=== PATIENT | female | born 1990 | race American Indian/Alaskan Native ===

== ENCOUNTER 2021-08-02 09:33 | Inpatient (IN) | payer SELFPAY ==
[2021-08-02] MEDS ORDERED: miSOPROStol 200 MCG TAB PR PRN (11:05)
[2021-08-02] MEDS ORDERED: fentaNYL 100 MCG/2 ML INJ IV PRN (11:05)
[2021-08-02] MEDS ORDERED: CARBOPROST TROMETHAMINE 250 MCG/1 ML INJ IM PRN (11:05)
[2021-08-02] MEDS ORDERED: NalbUPHINE 10 MG/1 ML INJ IV PRN (11:05)
[2021-08-02] MEDS ORDERED: ePHEDrine SULFATE 50 MG/1 ML INJ IV PRN (11:05)
[2021-08-02] MEDS ORDERED: AMPICILLIN/NS 2 GM/100 ML 2 GM/100 ML BAG IV ONE (11:05)
[2021-08-02] MEDS ORDERED: LIDOCAINE (2%) 20 MG/1 ML VIAL 20 ML MDV INFILTRATI ONE (11:05)
[2021-08-02] MEDS ORDERED: LOPERAMIDE 2 MG CAP PO PRN (11:05)
[2021-08-02] MEDS ORDERED: TERBUTALINE 1 MG/1 ML INJ SUB-Q PRN (11:05)
[2021-08-02] MEDS ORDERED: MINERAL OIL 30 ML ORAL LIQD PO PRN (11:05)
[2021-08-02] MEDS ORDERED: BUTORPHANOL 2 MG/1 ML INJ IV PRN (11:05)
[2021-08-02] MEDS ORDERED: OXYTOCIN 10 UNIT/1 ML INJ IM PRN (11:05)
[2021-08-02] MEDS ORDERED: METHYLERGONOVINE MALEATE 0.2 MG/ML VIAL IM PRN (11:05)
[2021-08-02] MEDS ORDERED: ACETAMINOPHEN 325 MG TAB PO PRN ×2 (11:05→22:21)
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
[2021-08-02] MEDS ORDERED: AMPICILLIN/NS 2 GM/100 ML 2 GM/100 ML BAG IV SCH (12:00)
[2021-08-02] MEDS ORDERED: OXYTOCIN DRIP 30 UNITS/500 ML BAG IV SCH ×4 (12:00→23:00)
[2021-08-02] MEDS: LACTATED RINGERS 1,000 ML IV SCH (13:26)
[2021-08-02 14:48] LABS: Hematocrit 35.3 % (30.3-42.9); Hemoglobin 11.8 gm/dl (10.1-14.3); Mean Corpuscular HGB Conc 34 % (30-34); Mean Corpuscular Volume 87 fl (79-97); Platelet Count 291 K/mm3 (140-440); Red Blood Count 4.04 M/mm3 (3.65-5.03); Red Cell Distribution Width 13.5 % (13.2-15.2)
--- NOTE | 2021-08-02 14:55 | Ultrasound Report ---
OBSTETRIC ULTRASOUND INDICATION: EFW, JOSE E COMPARISON: No prior relevant imaging studies are available for comparison. TECHNIQUE: Transabdominal imaging was performed. FINDINGS: Single viable intrauterine is identified. lie: Cephalic. measurements are as follows: Biparietal diameter 9.3 cm, 37 weeks 6 days Head circumference 29.7 cm, 32 weeks 6 days Abdominal circumference 30.0 cm, 34 weeks 0 days Femur length 6.8 cm, 34 weeks 6 days Estimated heart rate at this time is 1865 g. Amniotic fluid index is 6.3 cm,, below the lower limits of normal. CONCLUSION: Single viable intrauterine currently in cephalic position with estimated weight at th is time of 1865 g. Of note, the biparietal diameter measurement is several weeks disparate from the a dditional measurements, this measurement may be technically limited and not reliable. Amniotic fluid index is decreased at 6.3 cm. Signer Name: Samm Corey MD Signed: 08/02/2021 2:51 PM Workstation Name: [id number]
[2021-08-02 15:13] LABS: Hepatitis C Virus Antibody Non-Reactive (NonReactive)
[2021-08-02] MEDS ORDERED: BICITRA ORAL LIQD 30ML ONE (20:39)
[2021-08-02] MEDS ORDERED: FAMOTIDINE 20 MG/2 ML INJ IV ONE ×2 (20:39→20:43)
[2021-08-02] MEDS ORDERED: METOCLOPRAMIDE 10 MG/2 ML INJ ONE (20:39)
[2021-08-02] MEDS ORDERED: ceFAZolin/Water 2 GM/20 ML 2 GM/20 ML SYRINGE IV ONE (20:40)
[2021-08-02] MEDS ORDERED: METOCLOPRAMIDE 10 MG/2 ML INJ IV ONE (20:43)
[2021-08-02] MEDS ORDERED: BICITRA ORAL LIQD 30ML PO ONE (20:43)
[2021-08-02] MEDS ORDERED: LACTATED RINGERS 1,000 ML IV SCH (20:45)
--- NOTE | 2021-08-02 20:46 | Event Note ---
Date: 08/02/21 Patient with pitocin turned off now x 2 for NRFHTS. Now with persistent variable and late decelerations, not on pitocin. intolerance to labor. Recommended and offered primary c/s for NRFHTs. Patient agreed. To OR.
--- NOTE | 2021-08-02 20:47 | Anesthesia Consultation ---
Anesthesia Consult and Med Hx Date of service: 08/02/21 - Airway Anesthetic Teeth Evaluation: Good ROM Head & Neck: Adequate Mental/Hyoid Distance: Adequate Mallampati Class: Class II Intubation Access Assessment: Probably Good - Pulmonary Exam CTA: Yes - Cardiac Exam Cardiac Exam: RRR - Pre-Operative Health Status ASA Pre-Surgery Classification: ASA3 Proposed Anesthetic Plan: Spinal - Pulmonary Hx Smoking: Yes - Central Nervous System Hx Seizures: No Hx Psychiatric Problems: Yes (depression) - Endocrine Hx Renal Disease: No Hx Hypothyroidism: No Hx Hyperthyroidism: No - Hematic Hx Anemia: No Hx Sickle Cell Disease: No - Other Systems Hx Alcohol Use: No
--- NOTE | 2021-08-02 20:48 | Anesthesia Day of Surgery ---
Anesthesia Day of Surgery - Day of Surgery Patient Examined: Yes Patient H&P Reviewed: Yes Patient is NPO: Yes
[2021-08-02] MEDS ORDERED: ceFAZolin/Water 2 GM/20 ML 2 GM/20 ML SYRINGE IV NR (21:00)
[2021-08-02] MEDS ORDERED: WATER FOR IRRIG STERILE 1,500 ML BOTTLE IR ONE (21:07)
[2021-08-02] MEDS ORDERED: ceFAZolin/STERILE WATER 2 GM/20 ML SYRINGE IV ONE (21:07)
[2021-08-02] MEDS ORDERED: SODIUM CHLORIDE 0.9% IRR 1,500 ML BOTTLE IR ONE (21:07)
[2021-08-02] MEDS ORDERED: dexAMETHasone 20 MG/5 ML VIAL ONE (21:24)
[2021-08-02] MEDS ORDERED: BUPIVACAINE/PF (0.5%) 5 MG/1 ML 30 ML VIAL INFILTRATI ONE (21:24)
[2021-08-02] MEDS ORDERED: ONDANSETRON 4 MG/2 ML INJ ONE (21:24)
[2021-08-02] MEDS ORDERED: KETOROLAC 30 MG/1 ML INJ ONE (21:24)
[2021-08-02] MEDS ORDERED: SIMETHICONE 80 MG CHEW TAB PO PRN (22:21)
[2021-08-02] MEDS ORDERED: ONDANSETRON 4 MG/2 ML INJ IV PRN (22:21)
[2021-08-02] MEDS ORDERED: SENNOSIDES 8.6 MG TAB PO PRN (22:21)
[2021-08-02] MEDS ORDERED: WITCH HAZEL/ GLYCERIN PAD TP PRN (22:21)
[2021-08-02] MEDS ORDERED: NALOXONE 0.4 MG/1 ML INJ IV PRN (22:21)
[2021-08-02] MEDS ORDERED: PROMETHAZINE 25 MG RECT SUPP PR PRN (22:21)
[2021-08-02] MEDS ORDERED: MAGNESIUM HYDROXIDE (MOM) ORAL LIQD UDC PO PRN (22:21)
[2021-08-02] MEDS ORDERED: LANOLIN/ZINC/DIMETHICONE (LANSINOH) 7 GM TP PRN (22:21)
[2021-08-02] MEDS ORDERED: MORPHINE 4 MG/1 ML INJ IV PRN (22:21)
[2021-08-02] MEDS ORDERED: HYDROCORTISONE 25 MG RECTAL SUPP PR PRN (22:21)
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
[2021-08-02] MEDS ORDERED: KETOROLAC 30 MG/1 ML INJ IV SCH (23:00)
[2021-08-03] MEDS ORDERED: GLYCOPYRROLATE 0.4 MG/2 ML INJ IV ONE
[2021-08-03] MEDS ORDERED: GLYCOPYRROLATE 0.4 MG/2 ML INJ ONE (00:46)
[2021-08-03] MEDS ORDERED: MAGNESIUM SULFATE 4 GM/100 ML BAG IV ONE ×2 (02:04→02:36)
[2021-08-03 02:21] LABS: Hematocrit 39.3 % (30.3-42.9); Hemoglobin 13.5 gm/dl (10.1-14.3)
[2021-08-03] MEDS ORDERED: MAGNESIUM SULFATE 40GM/1000ML 40 GM/1,000 ML BAG IV ONE (02:24)
[2021-08-03] MEDS ORDERED: MAGNESIUM SULFATE 40GM/1000ML 40 GM/1,000 ML BAG IV SCH (03:00)
[2021-08-03 03:10] LABS: Bilirubin,Urine NEG (Negative); Blood,Urine NEG (Negative); Color,Urine Colorless (Yellow); Urobilinogen,Urine < 2.0 mg/dL (<2.0)
[2021-08-03 03:17] LABS: Amphetamine Screen,Urine Negative; Benzodiazepines Screen,Urine Negative; Cannabinoid Screen,Urine Negative; Cocaine Screen,Urine Negative; Methadone Screen,Urine Negative; Opiate Screen,Urine Negative
--- NOTE | 2021-08-03 07:19 | Event Note ---
Date: 08/03/21 elevated BPs to 160s. Given previous hx preeclampsia, but presume same diagnosis. Obtain PIH labs. Start magnesium x 24H PP.
[2021-08-03 07:20] LABS: Hematocrit 33.2 % (30.3-42.9); Hemoglobin 11.4 gm/dl (10.1-14.3); Mean Corpuscular HGB Conc 34 % (30-34); Mean Corpuscular Volume 87 fl (79-97); Platelet Count 278 K/mm3 (140-440); Red Blood Count 3.81 M/mm3 (3.65-5.03); Red Cell Distribution Width 13.5 % (13.2-15.2)
[2021-08-03 07:40] LABS: Alanine Aminotransferase 20 units/L (7-56); Uric Acid 5.9 mg/dL (3.5-7.6)
[2021-08-03 07:42] LABS: Bilirubin,Urine NEG (Negative); Blood,Urine SM (Negative); Color,Urine Straw (Yellow); Mucus,Urine FEW /HPF; Protein,Urine <15 mg/dL mg/dL (Negative); Urobilinogen,Urine < 2.0 mg/dL (<2.0)
[2021-08-03] MEDS: LACTATED RINGERS 1,000 ML IV SCH (08:28)
--- NOTE | 2021-08-03 11:08 | Post Anesthesia Evaluation ---
- Post Anesthesia Evaluation Patient Participated: Yes Airway Patent: Yes Stable Respiratory Function: Yes Nausea/Vomiting: No Temp > 96.8F: Yes Pain Manageable: Yes Adequeate Hydration: Yes Anesthesia Complications: No Block Receding Appropriately: Yes
--- NOTE | 2021-08-03 11:19 | Progress Note ---
Spinal Anesthesia Block - Spinal Anesthesia Block Start Time: 21:10 Stop Time: 21:12 Performed by:: JAMAAL HUGGINS Procedure: Sitting, sterile chlorahexadine 0.5% prep/drape, 1% lidocaine skin local, 25G spinal needle + introducer at L3-4, + CSF, - Heme, [1.9 ml 0.5% bupivacaine + 10 mcg dexmedetomidine] injected, drape removed, patient positioned supine with left uterine displacement, and spinal level verified to be adequate prior to surgery
--- NOTE | 2021-08-03 12:42 | Progress Note ---
Subjective - Subjective Date of service: 08/03/21 Interval history: Patient with stable blood pressure Postural altered mental status: suspect patient is having conversion reaction to DCF interview VSS Neuro exam WNL Uterus firm Plan for LAbs UDS and psych consult d/c MGSO4 to PP in stable condition Jacqueline Fitzgerald MD Objective - Vital Signs Latest vital signs: Vital Signs Temp Pulse Resp BP BP Pulse Ox Pulse Ox 08/03/21 12:36 72 127/78 100 08/03/21 12:31 78 100 08/03/21 12:26 72 100 08/03/21 12:21 82 100 08/03/21 12:16 74 100 08/03/21 12:11 79 100 08/03/21 12:06 79 123/76 98 08/03/21 12:01 76 99 08/03/21 11:56 78 99 08/03/21 11:51 72 100 08/03/21 11:46 81 100 08/03/21 11:41 76 100 08/03/21 11:36 77 132/69 99 08/03/21 11:31 86 98 08/03/21 11:26 79 99 08/03/21 11:21 72 99 08/03/21 11:16 86 100 08/03/21 11:11 74 99 08/03/21 11:06 83 125/73 99 08/03/21 11:01 76 100 08/03/21 10:56 84 100 08/03/21 10:51 76 100 08/03/21 10:46 74 100 08/03/21 10:41 81 100 08/03/21 10:40 87 94 08/03/21 10:36 76 136/81 100 08/03/21 10:31 80 100 08/03/21 10:27 80 131/81 08/03/21 10:26 75 100 08/03/21 10:21 69 100 08/03/21 10:16 80 99 08/03/21 10:11 71 100 08/03/21 10:06 75 100 08/03/21 10:01 77 100 08/03/21 09:56 69 100 08/03/21 09:51 75 99 08/03/21 09:46 74 100 08/03/21 09:41 75 100 08/03/21 09:36 71 122/71 100 08/03/21 09:31 78 100 08/03/21 09:26 73 100 08/03/21 09:21 87 100 08/03/21 09:16 65 100 08/03/21 09:11 77 100 08/03/21 09:08 79 92 08/03/21 09:06 70 131/78 100 08/03/21 09:01 69 100 08/03/21 08:56 69 100 08/03/21 08:51 86 100 08/03/21 08:46 68 100 08/03/21 08:41 86 100 08/03/21 08:36 84 98 08/03/21 08:33 79 82 L 08/03/21 08:31 74 100 08/03/21 08:29 67 122/75 08/03/21 08:26 64 100 08/03/21 08:21 63 100 08/03/21 08:19 100 08/03/21 08:18 98 F 57 L 16 105/63 100 08/03/21 08:17 63 105/63 08/03/21 08:16 69 99 08/03/21 08:14 57 L 104/61 08/03/21 08:11 61 99 08/03/21 08:06 62 99 08/03/21 08:01 61 100 08/03/21 07:59 59 L 115/71 08/03/21 07:56 65 100 08/03/21 07:51 63 99 08/03/21 07:46 61 100 08/03/21 07:44 60 114/68 08/03/21 07:41 76 87 08/03/21 07:36 64 99 08/03/21 07:31 57 L 100 08/03/21 07:29 55 L 108/59 08/03/21 07:26 64 100 08/03/21 07:21 61 100 08/03/21 07:16 58 L 99 08/03/21 07:14 56 L 112/66 08/03/21 07:11 59 L 99 08/03/21 07:06 61 100 08/03/21 07:01 67 98 08/03/21 06:59 63 108/65 08/03/21 06:56 60 99 08/03/21 06:51 57 L 99 08/03/21 06:46 56 L 100 08/03/21 06:44 54 L 118/64 08/03/21 06:41 55 L 100 08/03/21 06:36 50 L 99 08/03/21 06:31 65 98 08/03/21 06:29 56 L 102/61 08/03/21 06:26 56 L 100 08/03/21 06:21 55 L 100 08/03/21 06:16 55 L 100 08/03/21 06:14 53 L 107/68 08/03/21 06:11 57 L 100 08/03/21 06:06 55 L 100 08/03/21 06:01 57 L 100 08/03/21 05:59 57 L 133/79 08/03/21 05:56 59 L 100 08/03/21 05:51 69 88 08/03/21 05:48 74 90 08/03/21 05:46 77 99 08/03/21 05:44 65 115/68 08/03/21 05:41 67 99 08/03/21 05:36 70 98 08/03/21 05:31 61 98 08/03/21 05:29 58 L 104/66 08/03/21 05:26 69 98 08/03/21 05:21 55 L 98 08/03/21 05:16 56 L 98 08/03/21 05:14 58 L 101/66 08/03/21 05:11 57 L 99 08/03/21 05:06 54 L 99 08/03/21 05:01 57 L 99 08/03/21 04:59 54 L 96/64 08/03/21 04:56 59 L 99 08/03/21 04:51 57 L 99 08/03/21 04:46 54 L 99 08/03/21 04:44 55 L 99/63 08/03/21 04:41 59 L 99 08/03/21 04:36 54 L 99 08/03/21 04:31 55 L 99 08/03/21 04:29 55 L 100/64 08/03/21 04:26 61 98 08/03/21 04:21 62 99 08/03/21 04:16 59 L 99 08/03/21 04:14 60 102/65 08/03/21 04:11 60 98 08/03/21 04:06 65 98 08/03/21 04:01 58 L 100 08/03/21 03:59 57 L 114/72 08/03/21 03:56 61 99 08/03/21 03:51 60 100 08/03/21 03:46 61 100 08/03/21 03:44 65 130/79 90 08/03/21 03:41 57 L 100 08/03/21 03:36 88 100 08/03/21 03:31 59 L 100 08/03/21 03:29 56 L 124/77 08/03/21 03:26 61 100 08/03/21 03:21 66 100 08/03/21 03:16 58 L 100 08/03/21 03:14 60 111/73 08/03/21 03:11 81 99 08/03/21 03:06 67 100 08/03/21 03:01 60 100 08/03/21 02:59 62 120/76 08/03/21 02:56 65 100 08/03/21 02:51 62 99 08/03/21 02:46 61 99 08/03/21 02:44 76 103/58 08/03/21 02:41 71 99 08/03/21 02:36 66 100 08/03/21 02:31 73 100 08/03/21 02:29 76 140/91 08/03/21 02:27 14 08/03/21 02:09 91 H 93 08/03/21 02:07 97 H 100 08/03/21 02:02 100 H 183/116 99 08/03/21 02:00 97.4 F L 100 H 18 183/116 99 08/03/21 01:57 99 H 100 08/03/21 01:52 105 H 100 08/03/21 01:47 109 H 100 08/03/21 01:43 108 H 179/115 08/03/21 01:42 108 H 100 08/03/21 01:00 114 H 18 177/120 100 99 08/03/21 00:45 49 L 11 L 146/95 100 08/03/21 00:30 97.4 F L 48 L 14 129/81 100 08/03/21 00:00 54 L 14 127/80 99 08/02/21 23:45 48 L 14 126/83 99 08/02/21 23:30 54 L 14 123/76 100 08/02/21 23:15 97.4 F L 56 L 14 119/78 100 08/02/21 23:00 54 L 14 121/81 99 08/02/21 22:45 52 L 12 118/75 100 08/02/21 22:40 52 L 12 112/73 100 08/02/21 22:35 54 L 15 111/72 100 08/02/21 22:30 97.5 F L 69 15 114/72 100 08/02/21 20:42 81 100 08/02/21 20:37 73 100 08/02/21 20:32 71 100 08/02/21 20:27 74 100 08/02/21 20:22 68 100 08/02/21 20:19 68 122/70 08/02/21 20:17 74 100 08/02/21 20:12 75 100 08/02/21 20:07 72 100 08/02/21 20:02 68 100 08/02/21 19:57 71 100 08/02/21 19:52 70 100 08/02/21 19:49 82 134/75 08/02/21 19:47 64 100 08/02/21 19:45 100 08/02/21 19:42 75 100 08/02/21 19:37 78 100 08/02/21 19:32 86 100 08/02/21 19:27 75 100 08/02/21 19:22 75 100 08/02/21 19:19 76 121/80 08/02/21 19:17 71 100 08/02/21 19:12 71 100 08/02/21 19:07 73 100 08/02/21 19:02 70 100 08/02/21 18:57 79 100 08/02/21 18:52 77 100 08/02/21 18:48 82 124/69 08/02/21 18:47 75 100 08/02/21 18:42 95 H 100 08/02/21 18:37 91 H 100 08/02/21 18:32 79 100 08/02/21 18:27 73 100 08/02/21 18:22 86 100 08/02/21 18:19 75 147/84 08/02/21 18:17 77 100 08/02/21 18:12 85 100 08/02/21 18:07 80 100 08/02/21 17:55 82 100 08/02/21 17:50 78 100 08/02/21 17:49 68 132/79 08/02/21 17:45 77 100 08/02/21 17:40 74 100 08/02/21 17:35 77 100 08/02/21 17:30 77 100 08/02/21 17:25 81 100 08/02/21 17:20 72 100 08/02/21 17:19 85 119/66 08/02/21 17:15 73 100 08/02/21 17:10 70 100 08/02/21 17:05 70 100 08/02/21 17:00 62 100 08/02/21 16:55 69 100 08/02/21 16:50 64 100 08/02/21 16:48 60 116/67 08/02/21 16:45 71 100 08/02/21 16:40 64 100 08/02/21 16:35 74 100 08/02/21 16:30 77 100 08/02/21 16:19 68 125/65 81 L 08/02/21 16:17 64 100 08/02/21 16:12 63 100 08/02/21 16:08 84 86 08/02/21 16:07 89 08/02/21 15:53 68 100 08/02/21 15:49 78 108/93 08/02/21 15:48 68 100 08/02/21 15:43 80 99 08/02/21 15:38 65 100 08/02/21 15:33 67 100 08/02/21 15:28 63 100 08/02/21 15:23 71 100 08/02/21 15:19 74 127/83 08/02/21 15:18 70 100 08/02/21 15:13 81 100 08/02/21 15:08 71 100 08/02/21 15:03 68 100 08/02/21 15:00 98.1 F 08/02/21 14:58 69 100 08/02/21 14:53 69 100 08/02/21 14:48 76 125/84 100 08/02/21 14:43 76 100 08/02/21 14:38 73 100 08/02/21 14:33 89 99 08/02/21 14:28 78 100 08/02/21 14:25 98.2 F 08/02/21 14:23 78 97 08/02/21 14:19 73 131/82 08/02/21 14:18 74 100 08/02/21 14:06 72 100 08/02/21 14:01 75 156/80 100 08/02/21 13:56 72 100 08/02/21 13:51 74 99 08/02/21 13:46 77 100 08/02/21 13:41 80 100 08/02/21 13:36 70 100 08/02/21 13:31 79 100 08/02/21 13:26 69 100 08/02/21 13:21 67 100 08/02/21 13:16 104 H 95 08/02/21 13:08 82 100 08/02/21 13:03 71 100 08/02/21 12:58 81 99 08/02/21 12:53 75 128/83 99 08/02/21 12:48 81 99 08/02/21 12:43 100 Intake and Output 08/02/21 08/03/21 08/03/21 23:59 07:59 15:59 Intake Total 2500 750 Output Total 300 3500 1300 Balance 2200 -2750 -1300 Intake: IV 2500 Lactated Ringers 1,000 ml 1000 @ 125 mls/hr IV DIRECT JASON Rx#:[id number] Oral 750 Output: Urine 300 3500 1300 Indwelling Catheter 2100 1300 Uretheral ([place]) 1400 Other: Total, Intake Amount 500 Total, Output Amount 400 1300 - Labs Labs: Abnormal lab results 08/02/21 08/02/21 08/03/21 Range/Units 22:00 22:04 06:58 WBC 13.3 H (4.5-11.0) K/mm3 ABG pH 7.126 L 7.127 L (7.320-7.450) POC ABG pCO2 52.4 H 74.1 H (32.0-48.0) mmHg POC ABG pO2 17.4 L 11.8 L (83-108) mmHg ABG Hemoglobin 17.7 H (12.0-17.5) ABG Oxyhemoglobin 31.2 L 20.8 L (94-98) ABG Sodium 132.1 L (136.0-145.0) mmol/L ABG Potassium 5.3 H 5.3 H (3.40-4.50) mmol/L ABG Glucose 64 L 61 L (65-95) mg/dL Carboxyhemoglobin 0.1 L (0.5-1.5) Lactate Dehydrogenase (91-180) units/L Arterial Blood Glucose 64 L 61 L (65-95) mg/dL Arterial Blood Ionized Calcium 5.6 H (4.6-5.3) mg/dL 08/03/21 Range/Units 06:58 WBC (4.5-11.0) K/mm3 ABG pH (7.320-7.450) POC ABG pCO2 (32.0-48.0) mmHg POC ABG pO2 (83-108) mmHg ABG Hemoglobin (12.0-17.5) ABG Oxyhemoglobin (94-98) ABG Sodium (136.0-145.0) mmol/L ABG Potassium (3.40-4.50) mmol/L ABG Glucose (65-95) mg/dL Carboxyhemoglobin (0.5-1.5) Lactate Dehydrogenase 250 H (91-180) units/L Arterial Blood Glucose (65-95) mg/dL Arterial Blood Ionized Calcium (4.6-5.3) mg/dL
[2021-08-03] MEDS: oxyCODONE /ACETAMINOPHEN 5-325MG TAB PO PRN (20:44)
[2021-08-03] MEDS: IBUPROFEN 800 MG TAB PO PRN (22:23)
[2021-08-04 01:00] LABS: Alanine Aminotransferase 19 units/L (7-56); Albumin 2.9 g/dL (3.9-5); BUN/Creatinine Ratio 8; Blood Urea Nitrogen 9 mg/dL (7-17); Calcium 7.9 mg/dL (8.4-10.2); Hemolysis Index 4
[2021-08-04] MEDS: oxyCODONE /ACETAMINOPHEN 5-325MG TAB PO PRN ×3 (03:55→21:19)
[2021-08-04] MEDS: IBUPROFEN 800 MG TAB PO PRN ×2 (05:53→18:24)
[2021-08-04 11:59] LABS: Bilirubin,Urine NEG (Negative); Blood,Urine LG (Negative); Color,Urine Straw (Yellow); Protein,Urine <15 mg/dL mg/dL (Negative); Urobilinogen,Urine < 2.0 mg/dL (<2.0)
[2021-08-04 12:04] LABS: Amphetamine Screen,Urine Negative; Benzodiazepines Screen,Urine Negative; Cannabinoid Screen,Urine Negative; Cocaine Screen,Urine Negative; Methadone Screen,Urine Negative; Opiate Screen,Urine Negative
--- NOTE | 2021-08-04 14:34 | Progress Note ---
Assessment and Plan A: S/P Primary LTCS Hallucinations; inappropriate affect per nurses Pos Covid p: Continue routine pp care Obtain UDS and Psych consult Covid prec Encourage ambulation D/c home tomm if stable Consulted Dr King Subjective - Subjective Date of service: 08/04/21 Principal diagnosis: s/p primary LTCS Patient reports: appetite normal, voiding normally, pain well controlled, flatus, ambulating normally, other (POS COVID AND DENIES SOB. Pt is alert OX3 and asking about her baby.) [place]: doing well, bottle feeding Objective - Vital Signs Latest vital signs: Vital Signs Temp Pulse Resp BP BP Pulse Ox Pulse Ox 08/04/21 08:00 98.0 F 81 18 124/75 100 100 08/04/21 05:53 18 08/04/21 04:55 18 08/04/21 03:55 18 08/03/21 23:23 18 08/03/21 22:23 18 08/03/21 22:20 100 08/03/21 21:44 18 08/03/21 21:29 98.5 F 82 18 143/73 98 08/03/21 21:15 100 08/03/21 20:56 76 100 08/03/21 20:55 100 08/03/21 20:51 77 100 08/03/21 20:47 98.9 F 77 20 137/74 100 08/03/21 20:46 81 137/74 100 08/03/21 20:45 100 08/03/21 20:41 80 100 08/03/21 20:36 88 139/75 98 08/03/21 20:31 79 99 08/03/21 20:26 81 100 08/03/21 20:21 88 100 08/03/21 20:16 95 H 100 08/03/21 20:11 94 H 100 08/03/21 20:06 84 124/88 100 08/03/21 20:04 85 87 08/03/21 20:01 70 100 08/03/21 19:56 84 100 08/03/21 19:51 83 100 08/03/21 19:46 81 100 08/03/21 19:41 90 100 08/03/21 19:36 88 128/72 100 08/03/21 19:31 97 H 100 08/03/21 19:26 83 94 08/03/21 19:21 82 100 10/06/21 19:16 83 100 08/03/21 19:11 84 100 08/03/21 19:06 87 124/72 99 08/03/21 19:01 85 99 08/03/21 18:56 95 H 100 08/03/21 18:51 84 100 08/03/21 18:46 90 100 08/03/21 18:41 88 100 08/03/21 18:36 87 129/68 100 08/03/21 18:31 84 100 08/03/21 18:30 92 H 89 08/03/21 18:26 86 100 08/03/21 18:21 95 H 100 08/03/21 18:16 78 100 08/03/21 18:11 82 100 08/03/21 18:06 74 122/69 100 08/03/21 18:01 83 99 08/03/21 17:56 77 99 08/03/21 17:51 84 100 08/03/21 17:46 88 99 08/03/21 17:41 99 H 99 08/03/21 17:36 81 125/68 100 08/03/21 17:31 85 99 08/03/21 17:26 80 100 08/03/21 17:21 86 99 08/03/21 17:16 94 H 98 08/03/21 17:11 79 100 08/03/21 17:09 87 94 08/03/21 17:06 89 133/82 100 08/03/21 17:01 91 H 100 08/03/21 16:56 93 H 100 08/03/21 16:51 84 100 08/03/21 16:46 84 100 08/03/21 16:41 89 100 08/03/21 16:36 85 135/73 100 08/03/21 16:31 86 100 08/03/21 16:26 85 100 08/03/21 16:21 81 100 08/03/21 16:16 78 100 08/03/21 16:11 85 100 08/03/21 16:06 94 H 135/75 100 08/03/21 16:01 83 100 08/03/21 15:56 77 100 08/03/21 15:51 92 H 100 08/03/21 15:46 84 100 08/03/21 15:41 83 100 08/03/21 15:36 78 136/70 100 08/03/21 15:31 87 100 08/03/21 15:26 80 100 08/03/21 15:21 80 100 08/03/21 15:16 86 100 08/03/21 15:11 81 100 08/03/21 15:06 78 137/71 100 08/03/21 15:05 83 88 08/03/21 15:01 87 99 08/03/21 14:56 78 100 08/03/21 14:51 87 100 08/03/21 14:46 72 100 08/03/21 14:41 80 99 08/03/21 14:36 90 129/73 100 Intake and Output 08/03/21 08/04/21 08/04/21 22:59 06:59 14:59 Intake Total 120 240 Output Total 2000 900 Balance -1880 -660 Intake: Oral 120 240 Output: Urine 2000 900 Indwelling Catheter 2000 Void 900 Other: Total, Intake Amount 120 240 Total, Output Amount 2000 600 - Exam Breasts: Present: normal Abdomen: Present: normal appearance, soft, normal bowel sounds Vulva: both: normal Uterus: Present: normal, firm, fundal height below umbilicus Extremities: Present: normal Incision: Present: normal, dry, intact - Labs Labs: Abnormal lab results 08/04/21 Range/Units 00:29 Carbon Dioxide 21 L (22-30) mmol/L Glucose 115 H (65-100) mg/dL Calcium 7.9 L (8.4-10.2) mg/dL Alkaline Phosphatase 169 H (35-129) units/L Total Protein 5.2 L (6.3-8.2) g/dL Albumin 2.9 L (3.9-5) g/dL
--- NOTE | 2021-08-04 14:53 | Consultation ---
History of Present Illness - Reason for Consult Consult date: 08/04/21 Reason for consult: [place] 10 - Chief Complaint Chief complaint: rupture of membranes, no PNC - History of Present Psychiatric Illness Megan Marcelino is a 31 year old female with history of depression who was consulted for Board[place] score of 10. In my interview with the patient, she reports doing well. The patient denies being depressed but states she is having some anxiety because she wants to see her baby. The patient reports that she initially wanted to give up her son for adoption but after seeing her son's picture she has decided not to place him for adoption. The patient denies any current suicidal/homicidal ideation and denies hallucinations. PAST PSYCHIATRIC HISTORY: Diagnoses: Depression Suicide attempts or Self-harm behavior: Yes Prior psychiatric hospitalizations: Yes Substance Abuse history: Marijuana Previous psychiatric medications tried: Unknown Outpatient treatment:Unknown PAST MEDICAL HISTORY: None reported or document Family Psychiatric History: None reported or documented SOCIAL HISTORY Marital Status: Living Arrangements: Lives with boy friend Employment Status:unemployed Access to guns/weapons: Denies Education:12th grade History of Abuse:Denies Legal History: Denies REVIEW OF SYSTEMS Constitutional: Negative for weight loss ENT: Negative for stridor Respiratory: Negative for cough or hemoptysis All other systems reviewed and are negative MENTAL STATUS EXAMINATION General Appearance and Behavior: Age appropriate, good hygiene, wearing appropri ate clothes. Cooperation: cooperative Psychomotor Behavior: Psychomotor normal Mood: "ok" Affect and affective range: Incongruent with stated mood Thought Process: Goal directed Thought Content: Not Suicidal Speech: Normal volume, Regular rate and rhythm, Suicidal Ideation:Denies Homicidal Ideation: Denies Hallucinations: Denies Delusions: None elicited Impulse Control: Unimpaired Insight and Judgment: Limited, good judgment Memory: normal Attention: Distractible Orientation: alert and oriented Assessment and Plan (1) encounter for screening examination for mental health and behavioral disorder- Z13.30 Current Visit: Yes Status: Acute The patient to comply with previously prescribed medications Risks, benefits and alternatives of medications discussed with the patient, questions answered and consent obtained from patient. PSYCHOTHERAPY: Supportive psychotherapy provided MEDICAL: Per primary team DELIRIUM PRECAUTIONS: Please re-orient patient frequently, keep lights on during the day, and minimize benzodiazepines and opiates as these medications could worsen patient's confusion. SUPERVISOR TOWER: Defer to primary DISPOSITION:Do not recommend acute inpatient psychiatric hospitalization at this time. Internal Communications Manager will provide patient with psychiatric out patient resources FOLLOW-UP: Will sign off. Post hospital care: primary care provider, psychiatric provider Case staffed with Dr. Rojas Medications and Allergies Medications and Allergies Medications and Allergies Allergies Allergy/AdvReac Type Severity Reaction Status Date / Time No Known Allergies Allergy Unverified 08/02/21 11:04 Home Medications Medication Instructions Recorded Confirmed Last Taken Type Ibuprofen [Motrin 800 MG tab] 800 mg PO Q6H PRN #30 tablet 08/02/21 Unknown Rx oxyCODONE /ACETAMINOPHEN [Percocet 1 tab PO Q6H PRN #30 tablet 08/02/21 Unknown Rx 5/325 mg] Active Meds: Active Medications Acetaminophen (Acetaminophen 325 Mg Tab) 650 mg PO Q4H PRN PRN Reason: Pain, Mild (1-3) Last Admin: 08/03/21 14:47 Dose: 650 mg Documented by: Butorphanol Tartrate (Butorphanol 2 Mg/1 Ml Inj) 2 mg IV Q2H PRN PRN Reason: Pain , Severe (7-10) Carboprost Tromethamine (Carboprost Tromethamine 250 Mcg/1 Ml Inj) 250 mcg IM ONCE PRN PRN Reason: Uterine Bleeding Ephedrine Sulfate (Ephedrine Sulfate 50 Mg/1 Ml Inj) 10 mg IV Q2M PRN PRN Reason: Hypotension Fentanyl (Fentanyl 100 Mcg/2 Ml Inj) 100 mcg IV Q2H PRN PRN Reason: Pain,Severe (7-10) LABOR PAIN Hydrocortisone Acetate (Hydrocortisone 25 Mg Rectal Supp) 25 mg UT BID PRN PRN Reason: Hemorrhoids Lactated Ringer's (Lactated Ringers) 1,000 mls @ 125 mls/hr IV DIRECT JASON Last Admin: 08/03/21 08:28 Dose: 75 mls/hr Documented by: Oxytocin/Sodium Chloride (Pitocin/Ns 30 Unit/500ml) 30 units in 500 mls @ 40 mls/hr IV TITR JASON; Protocol Magnesium Sulfate (Magnesium Sulfate 40gm/1000ml) 40 gm in 1,000 mls @ 50 mls/hr IV DIRECT JASON Last Admin: 08/03/21 02:45 Dose: 2 gm/hr, 50 mls/hr Documented by: Ibuprofen (Ibuprofen 800 Mg Tab) 800 mg PO Q6H PRN PRN Reason: Pain, Mild (1-3) Last Admin: 08/04/21 05:53 Dose: 800 mg Documented by: Loperamide HCl (Loperamide 2 Mg Cap) 2 mg PO ONCE PRN PRN Reason: give with Hemabate Magnesium Hydroxide (Magnesium Hydroxide (Mom) Oral Liqd Udc) 30 ml PO QHS PRN PRN Reason: Constip Unrelieved By Senna Methylergonovine Maleate (Methylergonovine Maleate 0.2 Mg/Ml Vial) 0.2 mg IM ONCE PRN PRN Reason: Uterine Bleeding Mineral Oil (Mineral Oil 30 Ml Oral Liqd) 30 ml PO QHS PRN PRN Reason: Constipation Misoprostol (Misoprostol 200 Mcg Tab) 800 mcg UT ONCE PRN PRN Reason: Uterine Bleeding Morphine Sulfate (Morphine 4 Mg/1 Ml Inj) 4 mg IV Q4H PRN PRN Reason: Pain , Severe (7-10) Last Admin: 08/04/21 11:29 Dose: 4 mg Documented by: Multi-Ingredient Ointment (Lanolin/Zinc/Dimethicone (Lansinoh) 7 Gm) 1 applic TP PRN PRN PRN Reason: dryness/cracking Nalbuphine HCl (Nalbuphine 10 Mg/1 Ml Inj) 10 mg IV Q2H PRN PRN Reason: Pain, Moderate (4-6) Naloxone HCl (Naloxone 0.4 Mg/1 Ml Inj) 0.1 mg IV Q2MIN PRN PRN Reason: Res Rate </= 8 or 02 SAT < 92% Ondansetron HCl (Ondansetron 4 Mg/2 Ml Inj) 4 mg IV Q8H PRN PRN Reason: Nausea And Vomiting Oxycodone/Acetaminophen (Oxycodone /Acetaminophen 5-325mg Tab) 2 tab PO Q6H PRN PRN Reason: Pain, Moderate (4-6) Last Admin: 08/04/21 13:59 Dose: 2 tab Documented by: Oxytocin (Oxytocin 10 Unit/1 Ml Inj) 10 unit IM ONCE PRN PRN Reason: Uterine Bleeding Promethazine HCl (Promethazine 25 Mg Rect Supp) 25 mg UT Q6H PRN PRN Reason: N/V IF NPO AND NO IV ACCESS Senna (Sennosides 8.6 Mg Tab) 17.2 mg PO QHS PRN PRN Reason: Constipation Simethicone (Simethicone 80 Mg Chew Tab) 80 mg PO Q6H PRN PRN Reason: Gas pain Terbutaline Sulfate (Terbutaline 1 Mg/1 Ml Inj) 0.25 mg SUB-Q ONCE PRN PRN Reason: Hyperstimulation/Hypertonicity Witch Yamel/Glycerin (Witch Yamel/ Glycerin Pad) 1 each TP PRN PRN PRN Reason: Hemorrhoids/cleansing/soothing Mental Status Exam - Vital signs Last Vital Signs Temp 98.0 F 08/04/21 08:00 Pulse 81 08/04/21 08:00 Resp 18 08/04/21 08:00 BP 124/75 08/04/21 08:00 Pulse Ox 100 08/04/21 08:00 Results Result Diagrams: 08/03/21 06:58 08/04/21 00:29 Abnormal lab results 08/04/21 Range/Units 00:29 Carbon Dioxide 21 L (22-30) mmol/L Glucose 115 H (65-100) mg/dL Calcium 7.9 L (8.4-10.2) mg/dL Alkaline Phosphatase 169 H (35-129) units/L Total Protein 5.2 L (6.3-8.2) g/dL Albumin 2.9 L (3.9-5) g/dL All other labs normal.
[2021-08-05] MEDS: oxyCODONE /ACETAMINOPHEN 5-325MG TAB PO PRN ×2 (03:39→08:50)
--- NOTE | 2021-08-05 07:04 | Discharge Summary ---
Providers - Providers Date of Admission: 08/02/21 11:10 Date of discharge: 08/05/21 Attending physician: ANAID MONTES JR, MD 08/02/21 11:44 Consult to Case Management [CONS] Routine Services Needed at Discharge: Balance Bridge Inspector Comment:: pt giving up baby for adoption 08/03/21 17:58 Consult to Physician [CONS] Stat Comment: Consulting Provider: [facility] Physician Instructions: Reason For Exam: altertered mental status 08/04/21 08:00 Consult to Mental Health [CONS] Routine Reason For Exam: Answerwd #10 on the edinburgh scale. Primary care physician: ANAID MONTES JR, MD Hospitalization Reason for admission: active labor, rupture of membranes, IUP at term Delivery: Procedure: primary low transverse Episiotomy: none Laceration: none Incision: normal, dry, intact Other procedures: other (Mgso4 was started r/t elevated b/p.) complications: other (POS COVID, ANXIETY ATTACK WITH HALLUCINATIONS) Discharge diagnosis: IUP at term delivered [place] baby: male Hospital course: Pt arrived to [facility] in active labor with SROM. She eventfully ended up with a primary LTCS r/t NRFHT and arrest of decent. Pt was seen pp by psych r/t an anxiety attack and hallucinations. She had eventually planned for an adoption, but changed her mind after seeing the baby. She was started on Mg r/t preeclampsia and tested pos for covid w/o symptoms. See H&P,delivery summary, and pp notes. Condition at discharge: Stable Disposition: 01 HOME / SELF CARE / HOMELESS Plan - Discharge Medications Prescriptions: Ibuprofen [Motrin 800 MG tab] 800 mg PO Q6H PRN #30 tablet PRN Reason: Pain, Mild (1-3) oxyCODONE /ACETAMINOPHEN [Percocet 5/325 mg] 1 tab PO Q6H PRN #30 tablet PRN Reason: Pain, Moderate (4-6) - Provider Discharge Summary Additional instructions: [] Smoking cessation referral if applicable(refer to patient education folder for contact #) [] Refer to [facility] Booklet Call your doctor immediately for: * Fever > 100.5 * Heavy vaginal bleeding ( >1 pad per hour) * Severe persistent headache * Shortness of breath * Reddened, hot, painful area to leg or breast * Drainage or odor from incision. * Keep incision clean and dry at all times and follow doctor's instructions regarding bathing/showering - Follow up plan Follow up: ANAID MONTES JR, MD [Primary Care Provider] - 14 Days
[2021-08-05 12:00] VITALS: BP 132/85
== END 2021-08-05 11:40 | disposition home or self-care (01) | DRG 788 ==
LOC: EEVIPCON 09:33 → TRG 09:33 → APU 09:34 → TRG 11:05 → LD 11:10 → OB 08-03 21:13
PROVIDERS: ADMIT Obstetrics & Gynecology; ATTEND Obstetrics & Gynecology
PROC: 10D00Z1 Extraction of Products of Conception, Low, Open Approach (ICD-10-PCS; principal; 2021-08-02)
DX: O76 Abnormality in fetal heart rate and rhythm complicating labor and delivery (principal); O42.02 Full-term premature rupture of membranes, onset of labor within 24 hours of rupture; Z3A.37 37 weeks gestation of pregnancy; Z37.0 Single live birth; Z20.822 Contact with and (suspected) exposure to COVID-19; O99.344 Other mental disorders complicating childbirth; F99 Mental disorder, not otherwise specified
CPT/HCPCS: 36415; 76816; 80053; 80307; 81001; 82565; 82805; 83615; 84450; 84460; 84550; 85014; 85018; 85027; 86592; 86706; 86762; 86803; 86850; 86900; 86901; 87086; 87806; G0378; J0290; J0690; J1100; J1885; J2270; J2405; J2590; J2765; J3475; J3490; J7120; U0003